=== PATIENT | male | born 1990 | race Caucasian/White ===

== ENCOUNTER → 2019-03-12 10:58 | Outpatient (CLI) | payer MEDICAID, SELFPAY ==
[2019-03-12 11:55] LABS: AST(SGOT) 20 U/L (15-37); Alanine Aminotransfer ALT/SGPT 36 U/L (16-61); Alkaline Phosphatase 133 U/L (45-117); Bilirubin, Direct 0.15 mg/dL (0.00-0.30); Globulin 3.5 g/dL (2.2-4.2); Protein, Total 7.5 g/dL (6.4-8.2)
[2019-03-12 13:19] LABS: Hepatitis B Surface Antigen Non-Reactive (Nonreactive)
[2019-03-12 13:22] LABS: Hepatitis C Antibody Reactive (Nonreactive)
== END ==
PROVIDERS: Family Provider Internal Medicine Pulmonary Disease; PCP Internal Medicine Pulmonary Disease
DX: R63.0 Anorexia (principal); R53.81 Other malaise; R11.0 Nausea
CPT/HCPCS: 36415; 80076; 86803; 87340; 87521

== ENCOUNTER → 2019-10-06 06:58 | Outpatient (CLI) | payer MEDICAID, SELFPAY ==
[2017-03-11 06:09] VITALS: BMI 20.8
[2019-10-06 08:29] LABS: AST(SGOT) 52 U/L (15-37); Alanine Aminotransfer ALT/SGPT 132 U/L (16-61); Albumin, Serum 4.2 g/dL (3.2-5.0); Alkaline Phosphatase 158 U/L (45-117); Bilirubin, Direct 0.24 mg/dL (0.00-0.30); Globulin 3.8 g/dL (2.2-4.2)
[2019-10-06 09:07] LABS: Hepatitis B Surface Antigen Non-Reactive (Nonreactive)
[2019-10-06 09:20] LABS: Hepatitis C Antibody REACTIVE (Nonreactive)
== END ==
PROVIDERS: PCP Internal Medicine Pulmonary Disease
DX: R63.0 Anorexia (principal); R53.81 Other malaise; R11.0 Nausea
CPT/HCPCS: 36415; 80076; 86803; 87340; 87521